=== PATIENT | female | born 1985 | race Hispanic/Latino ===

== ENCOUNTER 2018-02-14 04:19 | Inpatient (IN) | payer OTHER ==
[2018-02-14] MEDS ORDERED: METHYLERGONOVINE 0.2MG/ML AMP IM PRN (04:42)
[2018-02-14] MEDS ORDERED: CARBOPROST TROME 250 MCG/ML IM PRN (04:42)
[2018-02-14] MEDS ORDERED: MEPERIDINE HCL 25 MG/0.5 ML IV PRN (04:42)
[2018-02-14] MEDS ORDERED: Ringers Lactate 1,000 ML IV PRN (04:42)
[2018-02-14] MEDS ORDERED: BUTORPHANOL 1 MG/ML INJ IV PRN (04:42)
[2018-02-14] MEDS ORDERED: PROMETHAZINE 25 MG/ML VIAL IM PRN (04:42)
[2018-02-14] MEDS ORDERED: MIDAZOLAM HCL 2 MG/2 ML INJ IV PRN (04:42)
[2018-02-14] MEDS ORDERED: OXYTOCIN/LR 20 UNIT/1,000 ML BAG IV ONE (04:50)
[2018-02-14] MEDS ORDERED: Ringers Lactate 1,000 ML IV ONE (04:50)
[2018-02-14] MEDS ORDERED: OXYTOCIN/LR 20 UNIT/1,000 ML BAG IV SCH ×2 (05:00→12:00)
[2018-02-14] MEDS ORDERED: Ringers Lactate 1,000 ML IV SCH (05:00)
[2018-02-14 05:04] LABS: RPR Titer ND
[2018-02-14 05:07] LABS: Absolute Lymphocytes (CBC) 2.2 K/uL (0.7-4.9); Absolute Monocytes 0.8 K/uL (0.1-1.3); Absolute Neutrophil 7.4 K/uL (1.8-8.0); Basophils % 0.1 % (0-1.3); Eosinophils % 0.8 % (0-4.4); Hematocrit 36.3 % (36.0-45.0); Lymphocytes % 20.9 % (15.3-44.8); MCH 27.8 pg (27.0-35.0); MCV 85.7 fL (80-100); MPV 9.7 fL (7.6-11.3); Monocytes % 7.9 % (3.3-12.3); RBC Red Blood Cell Count 4.24 M/uL (3.86-4.86)
[2018-02-14 05:21] VITALS: BMI 36.5
[2018-02-14 05:21] LABS: Urine Appearance CLEAR; Urine Bilirubin NEGATIVE (NEG); Urine Blood 1+ (NEG); Urine Color YELLOW; Urine Glucose NEGATIVE (NEG); Urine Protein NEGATIVE (NEG); Urine Urobilinogen 0.2 mg/dL (0.2-1.0); Urine pH 6.5 (5.0-7.0)
[2018-02-14 05:24] LABS: Urine Microscopic Reflex ORDER UMIC
[2018-02-14 05:57] LABS: Urine Bacteria 20-50 /HPF (<20); Urine Culture Reflex Order REFLEXED; Urine RBC <5 /HPF (NONE SEEN)
[2018-02-14] MEDS ORDERED: Oxycodone HCl/Acetaminophen 1 TAB TAB PO PRN ×2 (11:57)
[2018-02-14] MEDS ORDERED: DOCUSATE NA/SENNA CONC 1 TAB PO PRN (11:57)
[2018-02-14] MEDS ORDERED: DIPHENHYDRAMINE 25 MG TAB/CAP PO PRN (11:57)
[2018-02-14] MEDS ORDERED: BISACODYL 10 MG RECTAL SUPP RECT PRN (11:57)
[2018-02-14] MEDS ORDERED: ACETAMINOPHEN 500 MG TAB PO PRN (11:57)
[2018-02-14] MEDS ORDERED: IBUPROFEN 200 MG TAB PO PRN (11:57)
--- NOTE | 2018-02-14 12:50 | PREOPHP ---
Date of Admission: 02/14/2018 A 32-year-old 3, para 2, 39 weeks by dates, 40 weeks by ultrasound, 2-1/2 cm, FHT is normal a nd reactive. Rh positive, immune to Rubella. Negative beta strep screen. Rupture of membranes, guadalupe ar fluid. The patient is jamey regularly. Anticipate more rapid progress from this point forw elida. The patient had her last childbirth naturally. She knows if she wants medication, she is to as k the nurses and epidural of course if she wants it later in the labor expect more rapid progress onc e she gets to 4 cm. LEANNE/DEBRA Voice ID: [id number]
--- NOTE | 2018-02-14 13:29 | OP ---
Surgeon: Arthur Vogel MD Indications And Procedure: A 32-year-old, 3, para 2, at 39 weeks 2 days, 40 by ultrasound, 2 .5 cm on admission. Rupture of membranes, clear fluid. FHTs normal, reactive. Received Stadol IV j ust prior to delivery. Went rapidly to complete. Used Lamaze breathing techniques. Second stage of 10 minutes or less. Spontaneous vaginal delivery of an estimated 7-pound male , Apgars 9 and 9. No episiotomy. No laceration. Schultze delivery of the placenta was inspected and noted be inta ct and normal. A 300 cc or less blood loss. Rh positive, immune to Rubella. Negative beta strep sc reen. Tolerated all procedures well. Final Diagnoses: Term intrauterine and vaginal delivery. LEANNE/DEBRA Voice ID: [id number] Report ID: [id number]
[2018-02-14 21:51] LABS: RPR (Rapid Plasma Reagin) NON-REACT (NON-REACT)
[2018-02-15 14:11] VITALS: BP 104/67; TEMP 98
--- NOTE | 2018-02-15 22:34 | DS ---
Hospital Course: A 32-year-old, 3, para 2, 39 weeks' gestation. Delivered a 7-pound plus ma jens infant. Apgars 9 and 9. No episiotomy. No laceration. Schultze delivery of the placenta, which was inspected and noted to be intact and normal. Less than 300 cc blood loss. Rh positive, immune to Rubella. Negative beta strep screen. afebrile, ambulating and voiding. Lochia is nor mal. Will be dismissed later today to report back to my office in 6 weeks for followup, to report an y temperature elevation of 100 degrees or greater, severe pain, heavy bleeding, or any other type of abnormality. Dismissed with tramadol for analgesia, although she knows this goes to the breast-milk but Motrin here in the hospital has not been sufficient for pain relief, so we will give her somethin g stronger today, and on dismissal, she will probably take the tramadol as instructed. Final Diagnoses: Intrauterine gestation, 39 weeks, vaginal delivery. LEANNE/DEBRA Voice ID: [id number] Report ID: [id number]
[2018-02-17 03:23] LABS: HBsAG Nonreactive (Nonreactive)
== END 2018-02-15 14:30 | disposition home or self-care (01) | DRG 775 ==
LOC: 2ND-WC 04:19
PROVIDERS: ADMIT Specialist; ATTEND Specialist
PROC: 10E0XZZ Delivery of Products of Conception, External Approach (ICD-10-PCS; principal; 2018-02-14)
PROC: 10907ZC Drainage of Amniotic Fluid, Therapeutic from Products of Conception, Via Natural or Artificial Opening (ICD-10-PCS; 2018-02-14)
DX: O80 Encounter for full-term uncomplicated delivery (principal); Z3A.39 39 weeks gestation of pregnancy; Z37.0 Single live birth
CPT/HCPCS: 36415; 81003; 81015; 85025; 86592; 86901; 87086; 87088; 87340; J0595; J2590

== ENCOUNTER 2018-02-18 11:01 | Inpatient (IN) | payer OTHER ==
[2018-02-18] MEDS ORDERED: NA CHLORIDE 0.9% 1,000 ML ONE ×2 (12:09→13:38)
[2018-02-18 12:25] LABS: Absolute Lymphocytes (CBC) 0.4 K/uL (0.7-4.9); Absolute Neutrophil 9.7 K/uL (1.8-8.0); Basophils % 0.2 % (0-1.3); Eosinophils % 0.1 % (0-4.4); Hematocrit 36.2 % (36.0-45.0); Lymphocytes % 3.8 % (15.3-44.8); MCH 27.7 pg (27.0-35.0); MCV 86.7 fL (80-100); MPV 9.4 fL (7.6-11.3); Monocytes % 0.4 % (3.3-12.3); RBC Red Blood Cell Count 4.18 M/uL (3.86-4.86)
[2018-02-18 12:30] LABS: Bilirubin Direct 0.2 mg/dL (0-0.2); Bilirubin Total 0.8 mg/dL (0.3-1.2); Protein, Total 6.8 g/dL (6.0-8.3)
[2018-02-18 12:50] LABS: Potassium 2.8 mEq/L (3.6-5.0)
[2018-02-18] MEDS ORDERED: KCL 20 MEQ/100 mL IVPB 20 MEQ/100 ML BAG IV ONE (13:05)
[2018-02-18 13:53] LABS: Blood Morphology Comment NOT SEEN (NOT SEEN); Platelet Estimate ADEQ; Urine White Blood Cell Casts OK
--- NOTE | 2018-02-18 14:59 | RAD REPORT ---
EXAM DESCRIPTION: CT - Abdomen Pelvis W Contrast - 02/18/2018 2:31 pm CLINICAL HISTORY: Abdominal pain with nausea. COMPARISON: none. TECHNIQUE: Computed axial tomography of the abdomen pelvis was obtained. 100 cc Isovue-300 was admin istered intravenously. Oral contrast was not requested which limits evaluation of bowel. All CT scans are performed using dose optimization technique as appropriate and may include automated exposure control or mA/KV adjustment according to patient size. FINDINGS: The liver, spleen, pancreas, adrenal and kidneys appear unremarkable. The appendix is dilated. A 30 millimeter appendicolith is seen. Additional smaller appendicoliths ar e present. A moderate amount of ill-defined fluid surrounds the appendix. The proximal appendix exten ds superiorly. Pneumoperitoneum is not seen. IMPRESSION: Suppurative appendicitis
[2018-02-18] MEDS ORDERED: PIPER/TAZO/NS 3.375gm 3.375 GM/100 ML BAG ONE ×2 (15:34→23:40)
[2018-02-18 15:40] LABS: Urine Blood 3+ (NEG); Urine Glucose NEGATIVE (NEG); Urine Protein 1+ (NEG); Urine Specific Gravity <1.005 (1.005-1.030); Urine pH 6.5 (5.0-7.0)
[2018-02-18 15:41] LABS: Urine Bacteria <20 /HPF (<20); Urine Culture Reflex Order NOT NEEDED; Urine RBC 20-50 /HPF (NONE SEEN)
--- NOTE | 2018-02-18 15:41 | ER ---
Nurse's Notes [facility] Name: Alma Trejo Age: 32 yrs Sex: Female : 1985 Arrival Date: 02/18/2018 Time: 11:05 Bed 3 Private MD: None, None Diagnosis: Acute appendicitis Presentation: 02/18 11:28 Presenting complaint: Patient states: vaginal delivery x2 days ago, dc to home feeling sg fine, last night became weak and dizzy, worsens with standing, reports feeling sweaty, reports vaginal bleeding but feels its a normal amount like a period heavy flow but not abnormal for her, is her OBGYN. Transition of care: patient was not received from another setting of care. Onset of symptoms was February 18, 2018. Risk Assessment: Do you want to hurt yourself or someone else? Patient reports no desire to harm self or others. Initial Sepsis Screen: Does the patient meet any 2 criteria? No. Patient's initial sepsis screen is negative. Does the patient have a suspected source of infection? No. Patient's initial sepsis screen is negative. Care prior to arrival: None. 11:28 Method Of Arrival: Ambulatory sg 11:28 Acuity: TIFFANIE 3 sg Triage Assessment: 12:57 Headache History: Denies prior headaches. General: Appears in no apparent distress. tw2 Pain: Pain began 2-3 days ago. Pain: Also complains of nausea. 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 - Social history:: Smoking status: Patient/guardian denies using tobacco. - Ebola Screening: : Patient negative for fever greater than or equal to 101.5 degrees Fahrenheit, and additional compatible Ebola Virus Disease symptoms Patient denies exposure to infectious person Patient denies travel to an Ebola-affected area in the 21 days before illness onset No symptoms or risks identified at this time. - Family history:: not pertinent. - Hospitalizations: : The patient was recently seen at [facility]. Screenin:51 Abuse screen: Denies threats or abuse. Denies injuries from another. iw 14:15 Nutritional screening: No deficits noted. Tuberculosis screening: No symptoms or risk tw2 factors identified. Fall Risk None identified. Assessment: 11:51 General: Appears uncomfortable, Behavior is cooperative, drowsy. General: Reports iw chills for 12-24 hours, fever for feeling ill for. Pain: Complains of pain in forehead Pain. Neuro: Level of Consciousness is awake, obeys commands, Oriented to person, place, time, Moves all extremities. Full function. Cardiovascular: Patient's skin is warm and dry. Respiratory: Respiratory effort is even, unlabored. GI: Abdomen is non-distended, obese, Reports upper abdominal pain, diarrhea, nausea, vomiting. Derm: Skin is intact, is healthy with good turgor, Skin is pale. Musculoskeletal: Range of motion: intact in all extremities. 12:12 Reassessment: Pt finished CT oral contrast, CT notified . iw 12:56 Reassessment: Patient appears in no apparent distress at this time. Patient and/or tw2 family updated on plan of care and expected duration. Pain level reassessed. Patient is alert, oriented x 3, equal unlabored respirations, skin warm/dry/pink. Vital Signs: 11:25 BP 100 / 63; Pulse 115; Resp 17; Temp 98.1(TE); Pulse Ox 98% ; Weight 121.11 kg (R); sg Pain 10/10; 12:20 BP 93 / 69; Pulse 108; Resp 16 S; Pulse Ox 99% on R/A; Pain 10/10; iw 12:56 BP 93 / 65; Pulse 103; Resp 19; Pulse Ox 100% on R/A; tw2 14:14 BP 95 / 70; Pulse 114; Resp 18; Pulse Ox 99% on R/A; tw2 18:00 BP 92 / 62; Pulse 111; Resp 17; Pulse Ox 100% on R/A; Pain 10/10; sg ED Course: 11:05 Patient arrived in ED. mr 11:05 None, None is Private Physician. mr 11:29 Triage completed. sg 11:32 Arm band placed on. tw2 11:49 Terry Levy MD is Attending Physician. rn 11:50 Jane Long RN is Primary Nurse. iw 11:50 Initial lab(s) drawn, by me. Inserted saline lock: 20 gauge in right antecubital area, iw using aseptic technique. Blood collected. 11:52 Patient has correct armband on for positive identification. iw 12:05 Note: CONTRAST DROPPED OFF AT 1203. sw 12:51 Notified ED physician of a critical lab result(s). Potassium=2.8. iw 14:[address] via stretcher. vm2 14:31 CT Abd/Pelvis - W/Contrast In Process Unspecified. EDMS 14:32 CT completed. Patient tolerated procedure well. Patient moved back from CT. vm2 15:40 Darrion Lyles MD is Hospitalizing Provider. rn 18:30 No provider procedures requiring assistance completed. sg 18:45 Patient admitted, IV remains in place. intact, No redness/swelling at site. sg Administered Medications: 12:09 Drug: NS 0.9% 1000 ml Route: IV; Rate: 1000 ml; Site: right antecubital; iw 13:10 Follow up: Response: No adverse reaction; IV Status: Completed infusion; IV Intake: sg 990ml 13:05 Drug: Potassium Chloride 20 mEq Route: IV; Rate: calculated rate; Site: right tw2 antecubital; 15:15 Follow up: Response: No adverse reaction; IV Status: Completed infusion sg 13:42 Drug: NS 0.9% 1000 ml Route: IV; Rate: 1000 ml; Site: right antecubital; sg 14:40 Follow up: Response: No adverse reaction; IV Status: Completed infusion; IV Intake: sg 990ml 15:40 Drug: Zosyn 3.375 grams Route: IVPB; Infused Over: 60 mins; Site: right antecubital; sg 16:20 Follow up: Response: No adverse reaction; IV Status: Completed infusion sg Point of Care Testing: Blood Glucose: 11:31 Blood Glucose: 93 mg/dL; sg Ranges: Intake: 13:10 IV: 990ml; Total: 990ml. sg 14:40 IV: 990ml; Total: 1980ml. sg Outcome: 15:41 Decision to Hospitalize by Provider. rn 18:30 Admitted to OR accompanied by nurse, accompanied by tech, via wheelchair, with chart. sg 18:30 Condition: stable 18:30 Instructed on the need for admit, safety practices, Demonstrated understanding of instructions. 18:33 Patient left the ED. sg Signatures: Dispatcher [employer] Colton Boss, RN RN sg Trejo, Elmira mr Ethan, Jane, ALDEN RN Terry Cage MD MD rn Warren, Le Lepe RN RN [facility] Viki [facility]
--- NOTE | 2018-02-18 15:41 | EDPHYS ---
Physician Documentation [facility] Name: Alma Trejo Age: 32 yrs Sex: Female : 1985 Arrival Date: 02/18/2018 Time: 11:05 Bed 3 Private MD: None, None ED Physician Terry Levy HPI: 02/18 13:29 This 32 yrs old Female presents to ER via Ambulatory with complaints of Fever, rn abd pain. 13:29 The patient reports fever, not measured (subjective). Onset: The symptoms/episode rn began/occurred last night. Modifying factors: there are no obvious modifying factors. Severity of symptoms: At their worst the symptoms were moderate in the emergency department the symptoms have improved. The patient has not experienced similar symptoms in the past. The patient has been recently seen by a physician:. Reports vaginal delivery 2 days ago, had AROM but scheduled induction, no vaginal discharge other than mild bleeding, no foul discharge, + lower and right lower abd pain, assoc with nausea, no diarrhea. ROM only 4 hours until delivered. . 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 - Social history:: Smoking status: Patient/guardian denies using tobacco. - Ebola Screening: : Patient negative for fever greater than or equal to 101.5 degrees Fahrenheit, and additional compatible Ebola Virus Disease symptoms Patient denies exposure to infectious person Patient denies travel to an Ebola-affected area in the 21 days before illness onset No symptoms or risks identified at this time. - Family history:: not pertinent. - Hospitalizations: : The patient was recently seen at [facility]. ROS: 13:29 Constitutional: Negative for weight loss, + fever and chills Eyes: Negative for injury, rn pain, redness, and discharge, Neck: Negative for injury, pain, and swelling, Cardiovascular: Negative for chest pain, palpitations, and edema, Respiratory: Negative for shortness of breath, cough, wheezing, and pleuritic chest pain, Abdomen/GI: Negative for constipation Back: Negative for injury and pain, MS/Extremity: Negative for injury and deformity, Skin: Negative for injury, rash, and discoloration, Neuro: + generalized weakness Exam: 13:29 Constitutional: This is a well developed, well nourished patient who is awake, alert, rn and in no acute distress. Head/Face: Normocephalic, atraumatic. Eyes: Pupils equal round and reactive to light, extra-ocular motions intact. Lids and lashes normal. Conjunctiva and sclera are non-icteric and not injected. Cornea within normal limits. Periorbital areas with no swelling, redness, or edema. ENT: dry MM Neck: Trachea midline, no thyromegaly or masses palpated, and no cervical lymphadenopathy. Supple, full range of motion without nuchal rigidity, or vertebral point tenderness. No Meningismus. Cardiovascular: tachycardic, regular, no murmur Respiratory: Lungs have equal breath sounds bilaterally, clear to auscultation and percussion. No rales, rhonchi or wheezes noted. No increased work of breathing, no retractions or nasal flaring. Abdomen/GI: soft, + RLQ and suprapubic tenderness, no rebound or peritoneal signs MS/ Extremity: Pulses equal, no cyanosis. Neurovascular intact. Full, normal range of motion. Equal circumference. Neuro: Awake and alert, GCS 15, oriented to person, place, time, and situation. Cranial nerves II-XII grossly intact. Motor strength 5/5 in all extremities. Sensory grossly intact. Vital Signs: 11:25 BP 100 / 63; Pulse 115; Resp 17; Temp 98.1(TE); Pulse Ox 98% ; Weight 121.11 kg (R); sg Pain 10/10; 12:20 BP 93 / 69; Pulse 108; Resp 16 S; Pulse Ox 99% on R/A; Pain 10/10; iw 12:56 BP 93 / 65; Pulse 103; Resp 19; Pulse Ox 100% on R/A; tw2 14:14 BP 95 / 70; Pulse 114; Resp 18; Pulse Ox 99% on R/A; tw2 18:00 BP 92 / 62; Pulse 111; Resp 17; Pulse Ox 100% on R/A; Pain 10/10; sg MDM: 11:49 Patient medically screened. rn 15:29 ED course: Paged Dr. Lyles.. rn 15:39 Differential diagnosis: viral Infection, bacterial infection, gastroenteritis, rn appendicitis. Data reviewed: vital signs, nurses notes, lab test result(s), radiologic studies, CT scan, and as a result, I will admit patient. Counseling: I had a detailed discussion with the patient and/or guardian regarding: the historical points, exam findings, and any diagnostic results supporting the discharge/admit diagnosis, lab results, radiology results, the need for further work-up and treatment in the hospital. Response to treatment: the patient's symptoms have mildly improved after treatment, and as a result, I will admit patient. Admission orders: after a detailed discussion of the patient's condition and case, the admit orders are written by me. 16:12 ED course: Spoke with Dr. Lyles, plans to take to OR right now, notified OR team, in rn another case.. 02/18 11:57 Order name: Basic Metabolic Panel; Complete Time: 12:51 rn 02/18 11:57 Order name: CBC with Diff; Complete Time: 14:10 rn 02/18 11:57 Order name: Creatinine for Radiology; Complete Time: 12:51 rn 02/18 11:57 Order name: Hepatic Function; Complete Time: 12:51 rn 02/18 11:57 Order name: Lipase; Complete Time: 12:51 rn 02/18 11:57 Order name: Urine Microscopic Only; Complete Time: 16:05 rn 02/18 11:57 Order name: CT Abd/Pelvis - W/Contrast; Complete Time: 15:10 rn 02/18 12:36 Order name: CBC Smear Scan; Complete Time: 14:10 EDAK 02/18 15:12 Order name: Urine Dipstick--Ancillary (enter results); Complete Time: 16:05 bd 02/18 15:55 Order name: Test, Serum; Complete Time: 17:55 iw 02/18 11:57 Order name: IV Saline Lock; Complete Time: 12:07 rn 02/18 11:57 Order name: Labs collected and sent; Complete Time: 12:07 rn 02/18 11:57 Order name: Urine Dipstick-Ancillary (obtain specimen); Complete Time: 15:38 rn Administered Medications: 12:09 Drug: NS 0.9% 1000 ml Route: IV; Rate: 1000 ml; Site: right antecubital; iw 13:10 Follow up: Response: No adverse reaction; IV Status: Completed infusion; IV Intake: sg 990ml 13:05 Drug: Potassium Chloride 20 mEq Route: IV; Rate: calculated rate; Site: right tw2 antecubital; 15:15 Follow up: Response: No adverse reaction; IV Status: Completed infusion sg 13:42 Drug: NS 0.9% 1000 ml Route: IV; Rate: 1000 ml; Site: right antecubital; sg 14:40 Follow up: Response: No adverse reaction; IV Status: Completed infusion; IV Intake: sg 990ml 15:40 Drug: Zosyn 3.375 grams Route: IVPB; Infused Over: 60 mins; Site: right antecubital; sg 16:20 Follow up: Response: No adverse reaction; IV Status: Completed infusion sg Point of Care Testing: Blood Glucose: 11:31 Blood Glucose: 93 mg/dL; sg Ranges: Critical Glucose Levels:Adult <50 mg/dl or >400 mg/dl <40 mg/dl or >180 mg/dl Disposition: 02/18/18 15:41 Hospitalization ordered by Darrion Lyles for Inpatient Admission. Preliminary diagnosis is Acute appendicitis. - Bed requested for Telemetry/MedSurg (Inpatient). - Status is Inpatient Admission. sg - Condition is Stable. - Problem is new. - Symptoms have improved. UTI on Admission? 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 . rn 18:33 15:41 Hospitalization Ordered by Darrion Lyles MD for Inpatient Admission. Preliminary sg diagnosis is Acute appendicitis. Bed requested for Telemetry/MedSurg (Inpatient). Status is Inpatient Admission. Condition is Stable. Problem is new. Symptoms have improved. UTI on Admission? No. rn
[2018-02-18] MEDS ORDERED: Ringers Lactate 1,000 ML IV ONE (18:24)
[2018-02-18] MEDS ORDERED: MEPERIDINE HCL 25 MG/0.5 ML ONE ×2 (18:58→19:25)
[2018-02-18] MEDS ORDERED: Ringers Lactate 1,000 ML with POTASSIUM CL 20 MEQ IV ONE ×2 (19:00)
[2018-02-18] MEDS ORDERED: BUPIVACAINE 0.5% Inj,MDV 50 mL VIAL ONE (19:08)
[2018-02-18] MEDS ORDERED: FENTANYL CITR 100 MCG/2 ML ONE ×2 (19:13→20:06)
[2018-02-18] MEDS ORDERED: LIDOCAINE 1% MPF 5 ML VIAL ONE (19:13)
[2018-02-18] MEDS ORDERED: ROCURONIUM 50 MG/5 ML VIAL IV ONE (19:13)
[2018-02-18] MEDS ORDERED: PROPOFOL 200 MG/20 ML VIAL IV ONE (19:13)
[2018-02-18] MEDS ORDERED: SUCCINYLCHOLINE 20 MG/ML (10 ML) IV ONE (19:19)
[2018-02-18] MEDS ORDERED: NA CIT/CITRIC AC 30 ML ORAL UDC ONE (19:20)
[2018-02-18] MEDS ORDERED: Phenylephrine HCl 10 MG/ML 1 ML VIAL ONE (19:52)
--- NOTE | 2018-02-18 19:52 | PREOPHP ---
Date of Admission: 02/18/2018 Reason For Admission: Abdominal pain. History Of Present Illness: The patient is a 32-year-old female, comes in with 2 to 3-day h istory of right-sided abdominal pain associated with nausea and vomiting, progressively got worse. S he had a vaginal delivery, uneventful on Saturday, following which slow pain increased and symptoms inc reased, and she had low grade fever and she came to the emergency room. No diarrhea or constipation. No blood in her stool. No dysuria, hematuria. No sore throat, runny nose, cough, headaches, or di zziness. No chest pain. Review of Systems: Otherwise unremarkable. Past Medical History: Negative. Allergies: NO ALLERGIES. Past Surgical History: Negative. Social History: She does not smoke or drink. Family History: Significant for high blood pressure. Physical Examination: Vital Signs: On admission were temperature of 98.1, slightly tachycardic. General: She is awake, alert, and oriented x3. Head and Neck: Cranial nerves 2 through 12 are grossly within normal limits. No neck masses. No JV D. Throat clear. Neck is supple. Chest: Clear. Heart: S1, S2. Abdomen: Soft. Positive Rovsing sign. Positive right lower quadrant tenderness with rebound. No r igidity or guarding. Large uterus present. Extremities: Adequately perfused. Nontender. Neuro: Nonfocal. Laboratory Data: While white count is normal; however, she has a left shift. She has hypokalemia, w hich is being replaced. CT of the abdomen and pelvis is consistent with acute suppurative appendicit is. Assessment: Acute appendicitis. Plan: Admit, n.p.o., correction of the hyperkalemia, to the OR for laparoscopic appendectomy, possib le. The patient understands the risks, benefits, and alternatives and agrees to procedure. The eliezer ent understands and agrees. She also has IV antibiotics on board. SABRINA/DEBRA Voice ID: [id number]
[2018-02-18] MEDS ORDERED: KETOROLAC 30 MG/ML INJ ONE (20:01)
[2018-02-18] MEDS ORDERED: ONDANSETRON HCL 40 MG/20 ML VIAL ONE (20:02)
[2018-02-18] MEDS ORDERED: DEXAMETHASONE 10 MG/ML VIAL ONE (20:02)
[2018-02-18] MEDS ORDERED: GLYCOPYRROLATE 0.2 MG/ML SYR ONE ×2 (20:33)
[2018-02-18] MEDS ORDERED: NEOSTIGMINE 1 MG/ML -5 ML SYRINGE ONE (20:35)
--- NOTE | 2018-02-18 21:04 | P.OP ---
Preoperative diagnosis: Acute Perforated Appendicitis Postoperative diagnosis: same Primary procedure: Diagnostic Laparoscopy, Open Appy Anesthesia: General Estimated blood loss: min Specimen: Appy Findings: as above Complications: None Transferred to: Recovery Room Condition: Good
[2018-02-18] MEDS ORDERED: D5 0.45 NS 1,000 ML IV SCH (21:11)
[2018-02-18] MEDS ORDERED: ONDANSETRON 4 MG/2 ML VIAL IV PRN (21:11)
[2018-02-18 22:23] VITALS: BMI 37.2
[2018-02-18] MEDS ORDERED: HYDROCODONE/APAP 7.5/325 MG TAB PO PRN (23:03)
[2018-02-18] MEDS ORDERED: MEPERIDINE HCL 25 MG/0.5 ML IVP PRN ×2 (23:08→23:09)
[2018-02-18] MEDS: PIPER/TAZO/NS 3.375gm 3.375 GM/100 ML BAG IVPB SCH (23:49)
[2018-02-18] MEDS: D5NS KCL 20MEQ 20 MEQ/1,000 ML BAG IV SCH (23:49)
[2018-02-19] MEDS ORDERED: PIPER/TAZO/NS 3.375gm 3.375 GM/100 ML BAG ONE (05:23)
[2018-02-19] MEDS: PIPER/TAZO/NS 3.375gm 3.375 GM/100 ML BAG IVPB SCH ×3 (05:36→16:29)
[2018-02-19] MEDS: D5NS KCL 20MEQ 20 MEQ/1,000 ML BAG IV SCH ×3 (05:38→22:56)
[2018-02-19 06:29] LABS: Absolute Lymphocytes (CBC) 0.9 K/uL (0.7-4.9); Absolute Monocytes 0.7 K/uL (0.1-1.3); Absolute Neutrophil 21.3 K/uL (1.8-8.0); Basophils % 0.1 % (0-1.3); Hematocrit 28.2 % (36.0-45.0); MCH 28.7 pg (27.0-35.0); MCV 85.7 fL (80-100); MPV 9.5 fL (7.6-11.3); Monocytes % 3.2 % (3.3-12.3); RBC Red Blood Cell Count 3.29 M/uL (3.86-4.86)
[2018-02-19 06:52] LABS: BUN Blood Urea Nitrogen 12 mg/dL (6-20); Bicarbonate 22 mEq/L (21-31); Glucose Level 128 mg/dL (65-120); Magnesium 1.6 mg/dL (1.8-2.5); Phosphorus 3.1 mg/dL (2.5-4.3); Potassium 3.8 mEq/L (3.6-5.0); Sodium Level 136 mEq/L (135-145)
[2018-02-19 07:09] LABS: Blood Morphology Comment NOTED (NOT SEEN); Platelet Estimate ADEQ
[2018-02-19 07:10] LABS: Poikilocytosis 1+
[2018-02-19] MEDS ORDERED: MAGNESIUM SULFATE 1 gm IVPB 1 GM/100 ML BAG IV ONE (07:10)
[2018-02-19] MEDS ORDERED: POTASSIUM 25 MEQ EFFERV TAB PO ONE (07:11)
--- NOTE | 2018-02-19 07:44 | OP ---
Date of Procedure: 02/18/2018 Surgeon: Darrion Lyles MD Preoperative Diagnosis: Acute appendicitis. Postoperative Diagnosis: Acute perforated appendicitis. Procedure Performed: Diagnostic lap open appendectomy. Estimated Blood Loss: Minimal. Specimen: Appendix. Findings: As above. Anesthesia: General. Complications: None. Disposition: The patient tolerated the procedure in stable condition and taken to Recovery in good g eneral condition. Procedure In Detail: The patient was brought to the OR and placed in the supine position. General a nesthesia was begun. The patient was prepped and draped in usual sterile fashion. Marcaine 0.5% was infiltrated locally. Then, a 15-blade was used to make a 2 cm supraumbilical midline incision. Sub cutaneous tissue divided. The fascia was identified and divided. A #1 Vicryl suture was placed. Pe ritoneal cavity was entered with blunt dissection. A 12-mm trocar was placed into the peritoneal cav ity under direct vision. Pneumoperitoneum was established. Then two 5mm trocars placed one in the l eft lower quadrant and one in the suprapubic region. Laparoscopy revealed a separate fluid in the pe lvis which was aspirated in the right lower quadrant. Tip of the appendix is identified. Dissection proceeded. The cecum was identified, however, the base of the appendix on the cecum could not be id entified, as it was posterior medial and superior to the intraperitoneal structures and it was hard t o dissect because there was very very tough adhesion to free the appendix away from the surrounding t issue. At this point, I made a decision to convert in open. McBurney incision was made approximatel y 6 cm. Subcutaneous tissue divided. The fascia was identified and divided. Peritoneal cavity was entered and then the cecum completely mobilized into the field and indeed the base of the appendix wa s posterior to the cecum, retrocecal in nature. Very difficult to dissect it in the open procedure a nd once this was done, the base of the appendix and the cecum was clearly identified. The mesoappend ix was identified. Both structures were divided between the Endo-SANJAY stapling device and then the ce cum was placed back in the peritoneal cavity. The right lower quadrant and pelvis were thoroughly ir rigated. Effluent was clear. No evidence of bleeding or bowel injury appreciated. Subsequently, 0 chromic suture used to close the peritoneal surface and then a #1 Prolene used to close the fascia an d then 3-0 chromic used to approximate Cong fascia. Staple was used to close the skin. Pneumoperi toneum established. The minimal irrigation that was in the pelvis was aspirated. There was no evide nce of bleeding or bowel injury appreciated. Subsequently, all trocars were removed under direct vis ion. Stay sutures were tied to each other across the fascial defect. Subcu wounds were irrigated. Bleeding controlled with cautery and vidal were used to close the skin. Sterile dressing was appli ed. The patient was awakened and taken to recovery in good general condition. /MODL Voice ID: [id number] Report ID: [id number]
--- NOTE | 2018-02-19 13:41 | PN ---
Date of Progress Note: 02/19/2018 Subjective: The patient is awake, alert. Feels much better. Objective: Vital Signs: Stable. Afebrile. Abdomen: Benign. Laboratory Data: White count, however, is elevated at 23,000 with a left shift. Assessment: Status post open appendectomy for perforated appendicitis. Recommendations: Continue IV antibiotics. Advance diet. Encourage ambulation and incentive spirome try. DVT prophylaxis. /MODL Voice ID: [id number] Report ID: [id number]
[2018-02-20] MEDS: PIPER/TAZO/NS 3.375gm 3.375 GM/100 ML BAG IVPB SCH ×3 (00:04→18:18)
[2018-02-20 04:11] VITALS: O2SAT 96
[2018-02-20 05:47] LABS: Absolute Lymphocytes (CBC) 1.7 K/uL (0.7-4.9); Absolute Monocytes 0.5 K/uL (0.1-1.3); Absolute Neutrophil 11.2 K/uL (1.8-8.0); Basophils % 0.1 % (0-1.3); Eosinophils % 0.9 % (0-4.4); Hematocrit 26.3 % (36.0-45.0); Lymphocytes % 12.3 % (15.3-44.8); MCH 27.9 pg (27.0-35.0); MCV 87.2 fL (80-100); MPV 9.4 fL (7.6-11.3); RBC Red Blood Cell Count 3.01 M/uL (3.86-4.86)
[2018-02-20] MEDS: D5NS KCL 20MEQ 20 MEQ/1,000 ML BAG IV SCH (05:56)
[2018-02-20 06:04] LABS: BUN Blood Urea Nitrogen 13 mg/dL (6-20); Bicarbonate 23 mEq/L (21-31); Glucose Level 94 mg/dL (65-120); Magnesium 1.8 mg/dL (1.8-2.5); Potassium 3.5 mEq/L (3.6-5.0); Sodium Level 138 mEq/L (135-145)
[2018-02-20] MEDS ORDERED: MAGNESIUM SULFATE 1 gm IVPB 1 GM/100 ML BAG IV ONE (06:48)
[2018-02-20] MEDS ORDERED: POTASSIUM CL SA 10 MEQ TAB PO ONE (08:00)
--- NOTE | 2018-02-20 13:49 | PN ---
Date of Progress Note: 02/20/2018 Subjective: The patient is awake, alert. Tolerating diet. No pain. Objective: Vital Signs: Stable. Afebrile. Abdomen: Benign. Laboratory Data: White count is down to 13,000. Assessment: Status post open appendectomy. Recommendations: Continue IV antibiotics. Encourage ambulation and incentive spirometry. Probable discharge in a.m. /MODL Voice ID: [id number] Report ID: [id number]
[2018-02-21] MEDS: PIPER/TAZO/NS 3.375gm 3.375 GM/100 ML BAG IVPB SCH ×2 (00:20→09:00)
[2018-02-21 05:28] LABS: Absolute Lymphocytes (CBC) 1.9 K/uL (0.7-4.9); Absolute Monocytes 0.5 K/uL (0.1-1.3); Absolute Neutrophil 5.5 K/uL (1.8-8.0); Basophils % 0.4 % (0-1.3); Eosinophils % 1.5 % (0-4.4); MCH 28.2 pg (27.0-35.0); MCV 85.9 fL (80-100); MPV 9.7 fL (7.6-11.3); Monocytes % 5.7 % (3.3-12.3); RBC Red Blood Cell Count 3.14 M/uL (3.86-4.86)
[2018-02-21 05:48] LABS: BUN Blood Urea Nitrogen 11 mg/dL (6-20); Bicarbonate 22 mEq/L (21-31); Glucose Level 76 mg/dL (65-120); Magnesium 1.8 mg/dL (1.8-2.5); Sodium Level 137 mEq/L (135-145)
[2018-02-21 12:53] VITALS: BP 124/89; TEMP 97.7
--- NOTE | 2018-02-21 13:35 | DS ---
Date of Discharge: 02/21/2018 Admitting Diagnosis: Acute appendicitis. Discharge Diagnoses: Acute perforated appendicitis, hypokalemia. Procedures Performed: Diagnostic laparoscopy, open appendectomy. Hospital Course: The patient is a 32-year-old female, who underwent the aforementioned procedure. H ypokalemia was corrected. Today, she is tolerating diet, ambulating, pain control on p.o. pain medic ation and afebrile; therefore, the patient will be discharged to home. Disposition: Home. Condition: Stable. Discharge Instructions: Resume home medications and diet. Activity as tolerated. No heavy lifting. Remove outer dressing in a.m. Shower. Keep wound clean and dry. Follow up in my office in a week . Call for appointment. Augmentin 875 mg p.o. q.12, Tylenol No.3 one tablet p.o. q.4 p.r.n. pain. /MODL Voice ID: [id number] Report ID: [id number]
== END 2018-02-21 12:43 | disposition home or self-care (01) | DRG 340 ==
LOC: ER 11:01 → ERHOLD 15:41 → 2ND 20:51
PROVIDERS: ADMIT Surgery; ATTEND Surgery
PROC: 0DJD4ZZ Inspection of Lower Intestinal Tract, Percutaneous Endoscopic Approach (ICD-10-PCS; 2018-02-18)
PROC: 0DTJ0ZZ Resection of Appendix, Open Approach (ICD-10-PCS; principal; 2018-02-18 17:40)
DX: K35.2 Acute appendicitis with generalized peritonitis (principal); E87.6 Hypokalemia
CPT/HCPCS: 36415; 74177; 80048; 80076; 81003; 81015; 82962; 83690; 83735; 84100; 84703; 85025; 88304; 96361; 96365; 96366; 96367; 99285; J0330; J1100; J2175; J2370; J2405; J2543; J2710; J3010; J3475; J7030; Q9967

== ENCOUNTER 2018-03-03 12:39 | Emergency (ER) | payer OTHER ==
[2018-03-03 13:36] LABS: Urine Blood 3+ (NEG); Urine Glucose NEGATIVE (NEG); Urine Protein 1+ (NEG)
--- NOTE | 2018-03-03 13:51 | RAD REPORT ---
EXAM DESCRIPTION: VAS - Extremity Venous Uni Ltd - 03/03/2018 1:45 pm CLINICAL HISTORY: PAIN Leg swelling and edema. COMPARISON: No comparisons FINDINGS: Left lower extremity venous system was interrogated with Doppler technique. Normal flow, c ompressibility and augmentation was noted. There is no DVT present. IMPRESSION: No evidence of left lower extremity deep venous thrombosis.
--- NOTE | 2018-03-03 14:26 | EDPHYS ---
Physician Documentation [facility] Name: Alma Trejo Age: 32 yrs Sex: Female : 1985 Arrival Date: 03/03/2018 Time: 12:44 Bed 19 Private MD: None, None ED Physician Jhonatan Coburn HPI: 03/03 14:21 This 32 yrs old Female presents to ER via Ambulatory with complaints of Leg gs Pain. 14:21 The complaints affect the left quadriceps and left [place]. Onset: The symptoms/episode gs began/occurred 3 day(s) ago, and became worse. Modifying factors: the symptoms are aggravated by movement. Associated signs and symptoms: Pertinent negatives fever, warmth. Severity of symptoms: At their worst the symptoms were moderate, in the emergency department the symptoms are unchanged. 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 - Social history:: Smoking status: Patient/guardian denies using tobacco, Patient/guardian denies using alcohol. - Ebola Screening: : Patient negative for fever greater than or equal to 101.5 degrees Fahrenheit, and additional compatible Ebola Virus Disease symptoms Patient denies exposure to infectious person Patient denies travel to an Ebola-affected area in the 21 days before illness onset. ROS: 14:21 All other systems are negative. gs Exam: 14:21 Cardiovascular: Regular rate and rhythm with a normal S1 and S2. No gallops, murmurs, gs or rubs. Normal PMI, no JVD. No pulse deficits. Respiratory: Lungs have equal breath sounds bilaterally, clear to auscultation and percussion. No rales, rhonchi or wheezes noted. No increased work of breathing, no retractions or nasal flaring. Abdomen/GI: Soft, non-tender, with normal bowel sounds. No distension or tympany. No guarding or rebound. No evidence of tenderness throughout. Skin: Warm, dry with normal turgor. Normal color with no rashes, no lesions, and no evidence of cellulitis. Neuro: Awake and alert, GCS 15, oriented to person, place, time, and situation. Cranial nerves II-XII grossly intact. Motor strength 5/5 in all extremities. Sensory grossly intact. Cerebellar exam normal. Normal gait. 14:21 Constitutional: The patient appears in no acute distress, alert, awake. 14:21 Musculoskeletal/extremity: Circulation is intact in all extremities. DVT Exam: pain, that is moderate, tenderness, that is moderate, bluish discoloration, that is mild, of the left leg. Vital Signs: 12:57 BP 113 / 90; Pulse 89; Resp 18; Temp 98.6(O); Pulse Ox 98% on R/A; Weight 118.84 kg; hj Height 5 ft. 11 in. (180.34 cm); Pain 2/10; 12:57 Body Mass Index 36.54 (118.84 kg, 180.34 cm) MDM: 13:21 Patient medically screened. 14:21 Differential diagnosis: sprain, sciatica, dvt. Data reviewed: vital signs, nurses gs notes. Response to treatment: the patient's symptoms have mildly improved after treatment, and as a result, I will discharge patient. 03/03 13:14 Order name: Urine Dipstick--Ancillary (enter results); Complete Time: 13:52 bd 03/03 13:14 Order name: Urine --Ancillary (enter results); Complete Time: 13:52 bd 03/03 13:21 Order name: Extremity Venous Unilateral Ltd; Complete Time: 13:52 03/03 13:52 Order name: Urine Microscopic Only gs Administered Medications: No medications were administered Disposition: 03/03/18 14:26 Discharged to Home. Impression: Pain in left leg. - Condition is Stable. - Discharge Instructions: Musculoskeletal Pain. - Medication Reconciliation Form, Thank You Letter, Antibiotic Education, Prescription Opioid Use form. - Follow up: Private Physician; When: 2 - 3 days; Reason: Re-evaluation by your physician. Signatures: Dispatcher [employer] Wendy Sosa RN RN sv Joaquin, Henry, RN RN hj Starr, Gregory, MD MD gs Corrections: (The following items were deleted from the chart) 14:41 14:26 03/03/2018 14:26 Discharged to Home. Impression: Pain in left leg. Condition is sv Stable. Forms are Medication Reconciliation Form, Thank You Letter, Antibiotic Education, Prescription Opioid Use. Follow up: Private Physician; When: 2 - 3 days; Reason: Re-evaluation by your physician. gs
--- NOTE | 2018-03-03 14:26 | ER ---
Nurse's Notes [facility] Name: Alma Trejo Age: 32 yrs Sex: Female : 1985 Arrival Date: 03/03/2018 Time: 12:44 Bed 19 Private MD: None, None Diagnosis: Pain in left leg Presentation: 03/03 12:52 Presenting complaint: Patient states: S/P appendectomy on February, just gave hj on February; Saturday, started feeling pain on L leg, feeling of tingling; denies swelling, denies discoloration; denies fever, chills; denies SOB;. Transition of care: patient was not received from another setting of care. Onset of symptoms was March 03, 2018. Risk Assessment: Do you want to hurt yourself or someone else? Patient reports no desire to harm self or others. Initial Sepsis Screen: Does the patient meet any 2 criteria? No. Patient's initial sepsis screen is negative. Does the patient have a suspected source of infection? No. Patient's initial sepsis screen is negative. Care prior to arrival: None. 12:52 Method Of Arrival: Ambulatory 12:52 Acuity: TIFFANIE 4 hj Triage Assessment: 12:57 General: Appears in no apparent distress. uncomfortable, Behavior is calm, cooperative, hj appropriate for age. Pain: Complains of pain in left leg. 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 - Social history:: Smoking status: Patient/guardian denies using tobacco, Patient/guardian denies using alcohol. - Ebola Screening: : Patient negative for fever greater than or equal to 101.5 degrees Fahrenheit, and additional compatible Ebola Virus Disease symptoms Patient denies exposure to infectious person Patient denies travel to an Ebola-affected area in the 21 days before illness onset. Screenin:57 Abuse screen: Denies threats or abuse. Denies injuries from another. Nutritional hj screening: No deficits noted. Tuberculosis screening: No symptoms or risk factors identified. Fall Risk None identified. Assessment: 13:15 General: Appears in no apparent distress. comfortable, well developed, Behavior is sv calm, cooperative, appropriate for age. Pain: Complains of pain in left leg Pain currently is 2 out of 10 on a pain scale. Quality of pain is described as tingling. Neuro: Level of Consciousness is awake, alert, obeys commands, Oriented to person, place, time, situation, Moves all extremities. Full function Gait is steady, Speech is normal. Respiratory: Respiratory effort is even, unlabored, Respiratory pattern is Denies shortness of breath. Derm: Skin is pink, warm \T\ dry. 14:40 Reassessment: Patient appears in no apparent distress at this time. No changes from sv previously documented assessment. Patient and/or family updated on plan of care and expected duration. Pain level reassessed. Patient is alert, oriented x 3, equal unlabored respirations, skin warm/dry/pink. Vital Signs: 12:57 BP 113 / 90; Pulse 89; Resp 18; Temp 98.6(O); Pulse Ox 98% on R/A; Weight 118.84 kg; hj Height 5 ft. 11 in. (180.34 cm); Pain 2/10; 12:57 Body Mass Index 36.54 (118.84 kg, 180.34 cm) hj ED Course: 12:44 Patient arrived in ED. mr 12:44 None, None is Private Physician. mr 12:56 Triage completed. hj 12:57 Arm band placed on left wrist. hj 13:00 Wendy Acosta, ALDEN is Primary Nurse. sv 13:01 Jhonatan Coburn MD is Attending Physician. gs 13:15 Patient has correct armband on for positive identification. Placed in gown. Bed in low sv position. Call light in reach. Adult w/ patient. Door closed. Head of bed elevated. 13:15 Urine collected: clean catch specimen. sv 13:19 ED physician to see patient. sv 13:28 Patient taken to ultrasound. via wheelchair. sv 13:44 Ultrasound completed. Patient moved back from ultrasound. aa4 13:45 US Extremity Venous Unilateral Ltd In Process Unspecified. EDMS 14:40 No provider procedures requiring assistance completed. Patient did not have IV access sv during this emergency room visit. Administered Medications: No medications were administered Outcome: 14:26 Discharge ordered by . gs 14:41 Discharged to home ambulatory, with family. 14:41 Condition: stable 14:41 Discharge instructions given to patient, family, Instructed on discharge instructions, follow up and referral plans. Demonstrated understanding of instructions, follow-up care. 14:41 Patient left the ED. Addendum: 03/06/2018 10:04 Addendum: Culture Results: Positive urine culture. No further action required. Other: s s OK per TERESA Mar. Pt has no complaints of urinary s/s. Signatures: Dispatcher [employer] EDWnedy Ortez RN RN sv Rivera, Maria mr Up, Terri aa4 Priscila Tripp RN RN ss Joaquin, Henry, RN RN hj Starr, Gregory, MD MD gs
[2018-03-03 14:55] VITALS: BP 113/90; TEMP 98.6; O2SAT 98
[2018-03-03 16:07] LABS: Urine Amorphous Sediment 3+ /HPF (NONE SEEN); Urine Bacteria 20-50 /HPF (<20); Urine Culture Reflex Order REFLEXED
== END 2018-03-03 14:41 | disposition home or self-care (01) ==
LOC: ER 12:39
DX: M79.652 Pain in left thigh (principal); M79.662 Pain in left lower leg
CPT/HCPCS: 81003; 81015; 81025; 87077; 87086; 87088; 87186; 93971; 99284